=== PATIENT | male | born 1980 | race Hispanic/Latino ===

== ENCOUNTER 2022-06-21 11:14 | Outpatient (CLI) | payer BC | END 2022-06-21 11:15 | disposition home or self-care (01) | LOC: SCSMRI 11:14 | PROVIDERS: ATTEND Orthopaedic Surgery | DX: S83.231A Complex tear of medial meniscus, current injury, right knee, initial encounter (principal); M25.861 Other specified joint disorders, right knee ==

== ENCOUNTER 2022-07-12 09:30 | Day surgery (SDC) | payer BC ==
[2022-07-11 11:31] VITALS: BMI 25.1
[2022-07-12] MEDS ORDERED: PROPOFOL 20 ML ONE (10:06)
[2022-07-12] MEDS ORDERED: Bupivacaine PF 0.5% 30 ML VIAL ONE (10:06)
[2022-07-12] MEDS ORDERED: EPINEPHrine 1 MG/ML AMP ONE (10:07)
[2022-07-12] MEDS ORDERED: Lidocaine 2% PF 5 ML VIAL ONE (10:12)
[2022-07-12] MEDS ORDERED: Fentanyl 250 MCG/5 ML VIAL ONE (11:48)
[2022-07-12] MEDS ORDERED: Sodium Chloride 0.9% 100 ML ONE (11:55)
[2022-07-12] MEDS ORDERED: CEFAZOLIN 2 GM VIAL ONE (11:55)
[2022-07-12] MEDS ORDERED: Ketorolac Tromethamine 30 MG/ML VIAL ONE (12:08)
[2022-07-12] MEDS ORDERED: PROPOFOL 200 MG/20 ML VIAL ONE (12:08)
[2022-07-12] MEDS ORDERED: Dexamethasone 20 MG/5 ML VIAL ONE (12:08)
[2022-07-12] MEDS ORDERED: Lidocaine 1% PF 5 ML VIAL ONE (12:08)
[2022-07-12] MEDS ORDERED: Ondansetron PF 4 MG/2 ML Vial ONE (12:08)
== END 2022-07-12 14:55 | disposition home or self-care (01) ==
LOC: SDC 09:30
PROVIDERS: ATTEND Orthopaedic Surgery
PROC: 0SBC4ZZ Excision of Right Knee Joint, Percutaneous Endoscopic Approach (ICD-10-PCS; principal; 2022-07-12)
DX: S83.231A Complex tear of medial meniscus, current injury, right knee, initial encounter (principal); E78.00 Pure hypercholesterolemia, unspecified; Z91.011 Allergy to milk products; X58.XXXA Exposure to other specified factors, initial encounter
CPT/HCPCS: J0171; J1100; J1885; J2001; J2405; J2704; J3010; J3490; S0020